=== PATIENT | female | born 1945 | race Caucasian/White ===

== ENCOUNTER 2017-11-07 12:30 | Inpatient (IN) | payer OTHER ==
[~2017-11-07] VITALS: Ht 149.9 cm; Wt 74.8 kg
[~2017-11-07 12:30] MED LIST: ARICEPT5 MG PO; CLONAZEPAM2 MG PO; DESIREL PO; LAMICTAL200 M1; SYNTHROID112 MCG PO
[2017-11-14] MEDS ORDERED: LAMICTAL200 M1 PO (10:01)
[2017-11-14] MEDS ORDERED: ARICEPT5 MG PO (10:02)
[2017-11-14] MEDS ORDERED: CLONAZEPAM0.5 MG PO (10:05)
[2017-11-14] MEDS ORDERED: PREVACID15 MG PO (10:06)
[2017-11-14] MEDS ORDERED: CYMBALTA20 MG PO (10:07)
[2017-11-14] MEDS ORDERED: PRISTIQ25 MG PO (10:09)
[2017-11-14] MEDS ORDERED: DOCUSATE SODIU100 MG PO (10:55)
[2017-11-14] MEDS ORDERED: GABAPENTIN800 MG PO (10:55)
[2017-11-14] MEDS ORDERED: PERCOCET 5-3251 EACH PO (10:56)
[2017-11-14] MEDS ORDERED: AMOX-CLAV 875-1 EACH PO (10:56)
[2017-11-14] MEDS ORDERED: CLONAZEPAM1 MG PO (10:56)
== END 2017-11-14 12:56 | DRG 460 ==
LOC: O/R 11-13 05:10 → PED 11-13 05:10 → SURH 11-13 12:30 → PED 11-13 16:04
PROVIDERS: Orthopaedic Surgery Orthopaedic Surgery of the Spine
PROC: 0ST40ZZ Resection of Lumbosacral Disc, Open Approach (ICD-10-PCS; 2017-11-13)
PROC: 07DS3ZZ Extraction of Vertebral Bone Marrow, Percutaneous Approach (ICD-10-PCS; 2017-11-13)
PROC: 0SG30AJ Fusion of Lumbosacral Joint with Interbody Fusion Device, Posterior Approach, Anterior Column, Open Approach (ICD-10-PCS; principal; 2017-11-13 12:30)
DX: M96.1 Postlaminectomy syndrome, not elsewhere classified (principal); M51.17 Intervertebral disc disorders with radiculopathy, lumbosacral region; M47.27 Other spondylosis with radiculopathy, lumbosacral region; E03.8 Other specified hypothyroidism; I10 Essential (primary) hypertension

== ENCOUNTER 2021-09-13 10:15 | Inpatient (IN) | payer OTHER ==
[~2021-09-13] VITALS: Ht 152.4 cm; Wt 72.6 kg
[~2021-09-13 10:15] MED LIST changes: +AMOX-CLAV 875-1 EACH PO; +CLONAZEPAM0.5 MG PO; +CLONAZEPAM1 MG PO; +CYMBALTA20 MG PO; +DOCUSATE SODIU100 MG PO; +GABAPENTIN800 MG PO; +LAMICTAL200 M1 PO; +PERCOCET 5-3251 EACH PO; +PREVACID15 MG PO; +PRISTIQ25 MG PO
[2021-09-19] MEDS ORDERED: NAMEND PO (10:15)
[2021-09-19] MEDS ORDERED: CLONAZEPAM2 MG PO (10:15)
[2021-09-19] MEDS ORDERED: LAMIC PO (10:15)
[2021-09-19] MEDS ORDERED: SYNTHROID100 MCG PO (14:14)
[2021-09-22] MEDS ORDERED: COLACE100 MG PO (13:32)
[2021-09-22] MEDS ORDERED: AMOX-CLAV 875-1 EACH PO (13:33)
[2021-09-22] MEDS ORDERED: NEURONTIN800 MG PO (13:33)
[2021-09-22] MEDS ORDERED: MEDROLPACK PO (13:33)
[2021-09-22] MEDS ORDERED: PERCOCET 5-3251 EACH PO (13:33)
== END 2021-09-24 08:26 | DRG 454 ==
LOC: SURG 09-21 08:00 → O/R 09-22 08:06 → SURG 09-22 11:15 → OB/GYN 09-22 20:16 → O/R 09-22 20:38 → SURG 09-22 20:55
PROVIDERS: ADMIT Orthopaedic Surgery Orthopaedic Surgery of the Spine; ATTEND Orthopaedic Surgery Orthopaedic Surgery of the Spine
PROC: 0SG0071 Fusion of Lumbar Vertebral Joint with Autologous Tissue Substitute, Posterior Approach, Posterior Column, Open Approach (ICD-10-PCS; 2021-09-22)
PROC: 0SB20ZZ Excision of Lumbar Vertebral Disc, Open Approach (ICD-10-PCS; 2021-09-22)
PROC: 0QB30ZZ Excision of Left Pelvic Bone, Open Approach (ICD-10-PCS; 2021-09-22)
PROC: 0SP304Z Removal of Internal Fixation Device from Lumbosacral Joint, Open Approach (ICD-10-PCS; 2021-09-22)
PROC: 07DR0ZZ Extraction of Iliac Bone Marrow, Open Approach (ICD-10-PCS; 2021-09-22)
PROC: 0SG00A0 Fusion of Lumbar Vertebral Joint with Interbody Fusion Device, Anterior Approach, Anterior Column, Open Approach (ICD-10-PCS; principal; 2021-09-22 11:15)
DX: M48.062 Spinal stenosis, lumbar region with neurogenic claudication (principal); M96.0 Pseudarthrosis after fusion or arthrodesis; M51.36 Other intervertebral disc degeneration, lumbar region; M47.816 Spondylosis without myelopathy or radiculopathy, lumbar region; I10 Essential (primary) hypertension; E03.8 Other specified hypothyroidism